=== PATIENT | male | born 1965 | race Caucasian/White ===

== ENCOUNTER 2018-03-17 06:06 | Emergency (ER) | payer OTHER ==
[~2018-03-17] VITALS: Ht 175.3 cm; Wt 95.3 kg
[2018-03-17 06:09] VITALS: Ht 175.3 cm; Wt 95.3 kg
[2018-03-17 07:20] VITALS: BP 170/103
== END 2018-03-17 08:48 | disposition other institution (70) ==
LOC: ED 06:06
DX: S43.085A Other dislocation of left shoulder joint, initial encounter (principal); B19.20 Unspecified viral hepatitis C without hepatic coma; I25.10 Atherosclerotic heart disease of native coronary artery without angina pectoris; E78.00 Pure hypercholesterolemia, unspecified; I10 Essential (primary) hypertension; Z98.890 Other specified postprocedural states; Z95.5 Presence of coronary angioplasty implant and graft; W17.89XA Other fall from one level to another, initial encounter; Y93.89 Activity, other specified; Y92.89 Other specified places as the place of occurrence of the external cause; Y99.8 Other external cause status
CPT/HCPCS: J3010; J3490; Q0092

== ENCOUNTER 2018-04-05 17:36 | Emergency (ER) | payer OTHER ==
[~2018-04-05] VITALS: Ht 175.3 cm; Wt 97.5 kg
[2018-04-05 17:43] VITALS: Ht 175.3 cm; Wt 97.5 kg
[2018-04-05 19:17] VITALS: BP 165/110
== END 2018-04-05 19:17 | disposition other institution (70) ==
LOC: ED 17:36
DX: S43.085D Other dislocation of left shoulder joint, subsequent encounter (principal); I10 Essential (primary) hypertension; I25.2 Old myocardial infarction; Z98.890 Other specified postprocedural states; X58.XXXD Exposure to other specified factors, subsequent encounter
CPT/HCPCS: J2704; J3010; Q0092